=== PATIENT | male | born 1960 | race Caucasian/White ===

== ENCOUNTER 2016-06-26 14:58 | Observation (INO) | payer BC, MEDICAID ==
[~2016-06-26] VITALS: Ht 172.7 cm; Wt 70.0 kg
[2016-06-26 15:57] VITALS: BP 192/101; PULSE 102; RESP 20; TEMP 98.9; O2SAT 97
[2016-06-26 16:21] LABS: AUTOMATED NEUTROPHIL # 21.5 TH/MM3 (1.8-7.7); BASOPHIL # 0.1 TH/MM3 (0-0.2); BASOPHIL % 0.3 % (0.0-2.0); EOSINOPHIL % 0.1 % (0.0-4.0); LYMPHOCYTE # 1.2 TH/MM3 (1.0-4.8); MEAN CELL VOLUME 88.3 FL (80.0-100.0); MEAN CORPUSCULAR HEMOGLOBIN 30.2 PG (27.0-34.0); MEAN CORPUSCULAR HGB CONC 34.2 % (32.0-36.0); MONO % 6.5 % (0.0-8.0); NEUT % 88.1 % (16.0-70.0); PLATELET COUNT 300 TH/MM3 (150-450); RED BLOOD COUNT 4.99 MIL/MM3 (4.50-5.90); RED CELL DISTRIBUTION WIDTH 12.6 % (11.6-17.2); WHITE BLOOD COUNT 24.4 TH/MM3 (4.0-11.0)
[2016-06-26 16:31] LABS: AMPHETAMINE, URINE NEG (NEG); BARBITURATES, URINE NEG (NEG); COCAINE, URINE NEG (NEG)
[2016-06-26 16:34] LABS: HEMO FLAGS AUTO DIFF
[2016-06-26] MEDS ORDERED: SODIUM CHLOR 0.9% 1000 ML INJ 1,000 ML IV ONE ×2 (16:49)
[2016-06-26 16:54] LABS: ANION GAP 9 MEQ/L (5-15); AST (GOT) 15 U/L (15-37); BICARBONATE 26.1 MEQ/L (21.0-32.0); BLOOD UREA NITROGEN 19 MG/DL (7-18); CHLORIDE 95 MEQ/L (98-107); SODIUM (NA) 130 MEQ/L (136-145)
[2016-06-26 16:59] LABS: ALKALINE PHOSPHATASE 174 U/L (45-117); ALT (GPT) 44 U/L (12-78); GLOMERULAR FILTRATION RATE 104 ML/MIN (>89); TOTAL BILIRUBIN ADULT 0.5 MG/DL (0.2-1.0)
--- NOTE | 2016-06-26 17:01 | PD ---
HPI Chief Complaint: Psychiatric Symptoms Time Seen by Provider: 16:57 Travel History International Travel<30 days: No Contact w/Intl Traveler<30days: No Traveled to known affect area: No History of Present Illness HPI 56-year-old male that presents to the ED for evaluation of psychiatric illness. Patient was Michel acted by police after he was found making nonsensical statements. When I asked the patient about if he has any medical problems he states that is because "the black people". Patient also tells me that "[place] Ricans are all fight". Patient denies any medical problems. Per patient his only medical problem is " black people". He has never been here before. Patient makes nonsensical statements and I cannot really get any history from him. He denies any pain of any kind. No psychiatric illness. No signs of trauma or injury. Patient again is not a good historian and does appear to be somewhat psychotic at this time. Further history cannot be obtained. [facility] Past Medical History Medical History: Unable to Obtain Past Surgical History Surgical History: Unable to Obtain Social History Narrative Social History cannot obtain info Alcohol Use: No Tobacco Use: No Substance Use: No Allergies-Medications (Allergen,Severity, Reaction): Coded Allergies: UNOBTAINABLE (Unverified , 06/26/16) Reported Meds & Prescriptions Reported Meds & Active Scripts Active No Active Prescriptions or Reported Medications Review of Systems ROS Limitations: Altered Mental Status, Psychotic Except as stated in HPI: all other systems reviewed are Neg Physical Exam Exam Limitations: Altered Mental Status, Psychotic Narrative GENERAL: SKIN: Warm and dry. HEAD: Atraumatic. Normocephalic. EYES: Pupils equal and round. No scleral icterus. No injection or drainage. ENT: No nasal bleeding or discharge. Mucous membranes pink and moist. Tongue is midline. No uvula deviation. NECK: Trachea midline. No JVD. no meningia signs noted CARDIOVASCULAR: Regular rate and rhythm. No murmurs, S3, S4. RESPIRATORY: No accessory muscle use. Clear to auscultation. Breath sounds equal bilaterally. GASTROINTESTINAL: Abdomen soft, non-tender, nondistended. Hepatic and splenic margins not palpable. MUSCULOSKELETAL: Extremities without clubbing, cyanosis, or edema. No obvious deformities. Full range of motion of the upper and lower extremities bilaterally. 2+ pulses bilaterally. NEUROLOGICAL: Awake and alert. No obvious cranial nerve deficits. Motor grossly within normal limits. Five out of 5 muscle strength in the arms and legs. Normal speech. PSYCHIATRIC: psychotic mood and affect; insight and judgment questionable. Data Data Last Documented VS Vital Signs Date Time Temp Pulse Resp B/P Pulse Ox O2 Delivery O2 Flow Rate FiO2 06/26/16 20:21 88 20 167/87 98 Room Air 06/26/16 15:57 98.9 Orders Complete Blood Count With Diff (06/26/16 16:01) Comprehensive Metabolic Panel (06/26/16 16:01) Drug Screen, Random Urine (06/26/16 16:01) Alcohol (Ethanol) (06/26/16 16:01) Psych Screen (06/26/16 16:01) Ct Brain W/O Iv Contrast(Rout) (06/26/16 ) Lactic Acid Sepsis Protocol (06/26/16 16:49) Urinalysis - C+S If Indicated (06/26/16 16:49) Blood Culture (06/26/16 16:49) Chest, Single Ap (06/26/16 16:49) Ecg Monitoring (06/26/16 16:49) Iv Access Insert/Monitor (06/26/16 16:49) Oximetry (06/26/16 16:49) Sodium Chlor 0.9% 1000 Ml Inj (Ns 1000 M (06/26/16 16:49) Sodium Chlor 0.9% 1000 Ml Inj (Ns 1000 M (06/26/16 16:49) ^ Sitter (06/26/16 16:57) Cath For Specimen (06/26/16 18:00) Ceftriaxone Inj (Rocephin Inj) (06/26/16 20:30) Admit Order (Ed Use Only) (06/26/16 20:18) Labs Laboratory Tests Test 06/26/16 06/26/16 15:52 17:30 White Blood Count 24.4 TH/MM3 Red Blood Count 4.99 MIL/MM3 Hemoglobin 15.1 GM/DL Hematocrit 44.0 % Mean Corpuscular Volume 88.3 FL Mean Corpuscular Hemoglobin 30.2 PG Mean Corpuscular Hemoglobin 34.2 % Concent Red Cell Distribution Width 12.6 % Platelet Count 300 TH/MM3 Mean Platelet Volume 6.5 FL Neutrophils (%) (Auto) 88.1 % Lymphocytes (%) (Auto) 5.0 % Monocytes (%) (Auto) 6.5 % Eosinophils (%) (Auto) 0.1 % Basophils (%) (Auto) 0.3 % Neutrophils # (Auto) 21.5 TH/MM3 Lymphocytes # (Auto) 1.2 TH/MM3 Monocytes # (Auto) 1.6 TH/MM3 Eosinophils # (Auto) 0.0 TH/MM3 Basophils # (Auto) 0.1 TH/MM3 CBC Comment AUTO DIFF Differential Comment AUTO DIFF CONFIRMED Platelet Estimate NORMAL Platelet Morphology Comment NORMAL Sodium Level 130 MEQ/L Potassium Level 4.0 MEQ/L Chloride Level 95 MEQ/L Carbon Dioxide Level 26.1 MEQ/L Anion Gap 9 MEQ/L Blood Urea Nitrogen 19 MG/DL Creatinine 0.77 MG/DL Estimat Glomerular Filtration 104 ML/MIN Rate Random Glucose 136 MG/DL Calcium Level 9.3 MG/DL Total Bilirubin 0.5 MG/DL Aspartate Amino Transf 15 U/L (AST/SGOT) Alanine Aminotransferase 44 U/L (ALT/SGPT) Alkaline Phosphatase 174 U/L Total Protein 6.9 GM/DL Albumin 3.8 GM/DL Urine Opiates Screen NEG Urine Barbiturates Screen NEG Urine Amphetamines Screen NEG Urine Benzodiazepines Screen NEG Urine Cocaine Screen NEG Urine Cannabinoids Screen POS Ethyl Alcohol Level LESS THAN 3 MG/DL Lactic Acid Level 0.8 mmol/L MDM Medical Decision Making Medical Screen Exam Complete: Yes Emergency Medical Condition: Yes Medical Record Reviewed: Yes Interpretation(s) CBC & BMP Diagram 06/26/16 15:52 BMP Diagram 06/26/16 15:52 tox negative LFTS WNL Last Impressions Chest X-Ray 06/26/16 1649 Signed Impressions: Service Date/Time: Sunday, June 26, 2016 17:12 - CONCLUSION: No acute disease. Saul Najera MD Head CT 06/26/16 0000 Signed Impressions: Service Date/Time: Sunday, June 26, 2016 17:18 - CONCLUSION: 1. 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 2. No acute infarct, acute hemorrhage, mass effect or extra-axial fluid collections. Saul Najera MD Differential Diagnosis Depression versus suicidal ideation versus anxiety versus adjustment disorder versus mood disorder versus bipolar disorder versus schizophrenia versus paranoid disorder versus psychosis versus substance abuse versus alcohol abuse versus alcohol induced psychosis versus homicidality addition versus cutting versus personality disorder versus sepsis versus infectious versus CVA Narrative Course 56-year-old male that presents to the ED for evaluation of psych. Patient was properly examined and was found to have signs and symptoms consistent with appears to be at this time psychosis. She has never been here before. He doesn 't appear to have any signs of trauma. I recommend patient this time is labs and imaging to rule out CVA. Labs came back with an elevated level second of for known etiology. Case was discussed in my attending recommends sepsis workup. Patient was put on an IV and new labs and imaging ordered. Labs and imaging were essentially unremarkable except for slightly elevated white blood cell count at 24,000. Case discussed with my attending who recommends admission and psych evaluation. Patient was started on Rocephin to rule out any sign of UTI as urine still pending. Patient was admitted to Dr. St after my attending spoke with her. Diagnosis Primary Impression: Altered mental status Qualified Code: R41.0 - Delirium Additional Impression: Leukocytosis Qualified Code: D72.829 - Leukocytosis, unspecified type Admitting Information Admitting Physician Requests: Observation Scripts No Active Prescriptions or Reported Meds Brendan Wick Jun 26, 2016 17:01
[2016-06-26 17:03] LABS: PLATELET ESTIMATE SMEAR NORMAL (NORMAL); PLATELET MORPHOLOGY NORMAL (NORMAL); SCAN/DIFF AUTO DIFF CONFIRMED
--- NOTE | 2016-06-26 17:21 | RADRPT ---
EXAM DATE/TIME: 06/26/2016 17:12 [facility] COMPARISON: No previous studies available for comparison. INDICATIONS : Cough for several days. MEDICAL HISTORY : Unobtainable. SURGICAL HISTORY : Unobtainable. ENCOUNTER: Initial ACUITY: 2 days PAIN SCORE: 0/10 LOCATION: Bilateral chest FINDINGS: A single view of the chest demonstrates the lungs to be symmetrically aerated without evidence of mas s, infiltrate or effusion. The cardiomediastinal contours are unremarkable. Osseous structures are intact. CONCLUSION: No acute disease. Saul Najera MD on June 26, 2016 at 17:20 Board Certified Radiologist. This report was verified electronically.
--- NOTE | 2016-06-26 17:27 | RADRPT ---
EXAM DATE/TIME: 06/26/2016 17:18 [facility] COMPARISON: No previous studies available for comparison. INDICATIONS : Altered mental status. RADIATION DOSE: 50.23 CTDIvol (mGy) MEDICAL HISTORY : None SURGICAL HISTORY : None. ENCOUNTER: Initial ACUITY: 1 day PAIN SCALE: 0/10 LOCATION: cranial TECHNIQUE: Multiple contiguous axial images were obtained of the head. Using automated exposure control and adj ustment of the mA and/or kV according to patient size, radiation dose was kept as low as reasonably a chievable to obtain optimal diagnostic quality images. FINDINGS: CEREBRUM: The ventricles are normal for age. No evidence of midline shift, mass lesion, hemorrhage or acute in farction. There is an old lacunar infarct within the right putamen. No extra-axial fluid collections are seen. POSTERIOR FOSSA: The cerebellum and brainstem are intact. The 4th ventricle is midline. The cerebellopontine angle i s unremarkable. EXTRACRANIAL: The visualized portion of the orbits is intact. SKULL: The calvaria is intact. No evidence of skull fracture. CONCLUSION: 1. 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 2. No acute infarct, acute hemorrhage, mass effect or extra-axial fluid collections. Saul Najera MD on June 26, 2016 at 17:24 Board Certified Radiologist. This report was verified electronically.
[2016-06-26 19:08] VITALS: BP 174/84; PULSE 75; RESP 18; O2SAT 98
[2016-06-26 20:21] VITALS: BP 167/87; PULSE 88; RESP 20; O2SAT 98
--- NOTE | 2016-06-26 20:24 | PD ---
Physical Exam Narrative GENERAL: Well-nourished, well-developed patient. SKIN: Warm and dry. HEAD: Normocephalic EYES: No injection or drainage. ENT: No nasal drainage noted. NECK: Supple, trachea midline. CARDIOVASCULAR: Regular rate and rhythm RESPIRATORY: no increased effort. No accessory muscle use. NEUROLOGICAL: Awake. Moves all extremities. Normal speech. Data Data Last Documented VS Vital Signs Date Time Temp Pulse Resp B/P Pulse Ox O2 Delivery O2 Flow Rate FiO2 06/26/16 20:21 88 20 167/87 98 Room Air 06/26/16 15:57 98.9 Orders Complete Blood Count With Diff (06/26/16 16:01) Comprehensive Metabolic Panel (06/26/16 16:01) Drug Screen, Random Urine (06/26/16 16:01) Alcohol (Ethanol) (06/26/16 16:01) Psych Screen (06/26/16 16:01) Ct Brain W/O Iv Contrast(Rout) (06/26/16 ) Lactic Acid Sepsis Protocol (06/26/16 16:49) Urinalysis - C+S If Indicated (06/26/16 16:49) Blood Culture (06/26/16 16:49) Chest, Single Ap (06/26/16 16:49) Ecg Monitoring (06/26/16 16:49) Iv Access Insert/Monitor (06/26/16 16:49) Oximetry (06/26/16 16:49) Sodium Chlor 0.9% 1000 Ml Inj (Ns 1000 M (06/26/16 16:49) Sodium Chlor 0.9% 1000 Ml Inj (Ns 1000 M (06/26/16 16:49) ^ Sitter (06/26/16 16:57) Cath For Specimen (06/26/16 18:00) Ceftriaxone Inj (Rocephin Inj) (06/26/16 20:30) Admit Order (Ed Use Only) (06/26/16 20:18) Place In Observation (06/26/16 ) Vital Signs (Adult) Q4H (06/26/16 20:22) Activity Oob With Assistance (06/26/16 20:22) ^ Fork Repairer / Telemetry .CONTINUOUS (06/26/16 20:22) Diet Heart Healthy (06/27/16 Breakfast) Sodium Chloride 0.9% Flush (Ns Flush) (06/26/16 20:30) Sodium Chloride 0.9% Flush (Ns Flush) (06/26/16 21:00) Basic Metabolic Panel (Bmp) (06/27/16 06:00) Complete Blood Count With Diff (06/27/16 06:00) Case Management Consult (06/26/16 20:22) Naloxone Inj (Narcan Inj) (06/26/16 20:30) ^ Sitter (06/26/16 20:22) Consult Psychiatry (06/26/16 ) Labs Laboratory Tests Test 06/26/16 06/26/16 15:52 17:30 White Blood Count 24.4 TH/MM3 Red Blood Count 4.99 MIL/MM3 Hemoglobin 15.1 GM/DL Hematocrit 44.0 % Mean Corpuscular Volume 88.3 FL Mean Corpuscular Hemoglobin 30.2 PG Mean Corpuscular Hemoglobin 34.2 % Concent Red Cell Distribution Width 12.6 % Platelet Count 300 TH/MM3 Mean Platelet Volume 6.5 FL Neutrophils (%) (Auto) 88.1 % Lymphocytes (%) (Auto) 5.0 % Monocytes (%) (Auto) 6.5 % Eosinophils (%) (Auto) 0.1 % Basophils (%) (Auto) 0.3 % Neutrophils # (Auto) 21.5 TH/MM3 Lymphocytes # (Auto) 1.2 TH/MM3 Monocytes # (Auto) 1.6 TH/MM3 Eosinophils # (Auto) 0.0 TH/MM3 Basophils # (Auto) 0.1 TH/MM3 CBC Comment AUTO DIFF Differential Comment AUTO DIFF CONFIRMED Platelet Estimate NORMAL Platelet Morphology Comment NORMAL Sodium Level 130 MEQ/L Potassium Level 4.0 MEQ/L Chloride Level 95 MEQ/L Carbon Dioxide Level 26.1 MEQ/L Anion Gap 9 MEQ/L Blood Urea Nitrogen 19 MG/DL Creatinine 0.77 MG/DL Estimat Glomerular Filtration 104 ML/MIN Rate Random Glucose 136 MG/DL Calcium Level 9.3 MG/DL Total Bilirubin 0.5 MG/DL Aspartate Amino Transf 15 U/L (AST/SGOT) Alanine Aminotransferase 44 U/L (ALT/SGPT) Alkaline Phosphatase 174 U/L Total Protein 6.9 GM/DL Albumin 3.8 GM/DL Urine Opiates Screen NEG Urine Barbiturates Screen NEG Urine Amphetamines Screen NEG Urine Benzodiazepines Screen NEG Urine Cocaine Screen NEG Urine Cannabinoids Screen POS Ethyl Alcohol Level LESS THAN 3 MG/DL Lactic Acid Level 0.8 mmol/L MDM Supervised Visit with SANTOS: Yes Interpretation(s) CBC & BMP Diagram 06/26/16 15:52 Last 24 hours Impressions Chest X-Ray 06/26/16 1649 Signed Impressions: Service Date/Time: Sunday, June 26, 2016 17:12 - CONCLUSION: No acute disease. Saul Najera MD Head CT 06/26/16 0000 Signed Impressions: Service Date/Time: Sunday, June 26, 2016 17:18 - CONCLUSION: 1. 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 2. No acute infarct, acute hemorrhage, mass effect or extra-axial fluid collections. Saul Najera MD Narrative Course I, Dr. delacruz, have reviewed the advance practice practitioner's documentation and am in agreement, met with the patient face to face, made the diagnosis, and the medical decision making was done by me. *My assessment and Findings: A 56-year-old male presents under Michel act for altered mental status. He cannot provide significant history. Workup reveals elevated white count. He'll be admitted for further care and Rocephin was given empirically after discussion with the admission physician Physician Communication Physician Communication dr pisano agrees to admit, requests rocephin Diagnosis Primary Impression: Altered mental status Qualified Code: R41.82 - Altered mental status, unspecified altered mental status type Additional Impression: Leukocytosis Qualified Code: D72.829 - Leukocytosis, unspecified type Admitting Information Admitting Physician Requests: Observation Scripts No Active Prescriptions or Reported Meds Rola Delacruz MD Jun 26, 2016 20:24
[2016-06-26 20:25] LABS: BLOOD, URINE NEG (NEG); COMMENT (UR) CULT NOT INDICATED; CULTURE IF INDICATED CULT NOT INDICATED; GLUCOSE,URINE NEG (NEG); KETONE, URINE NEG (NEG); MUCUS URINE FEW /lpf (OCC); NITRITE,URINE NEG (NEG); PH, URINE 5.5 (5.0-8.5); URINE COLOR YELLOW (YELLW/STRAW)
[2016-06-26] MEDS ORDERED: SODIUM CHLORIDE 0.9% FLUSH 5 ML FLUSH FLUSH PRN (20:30)
[2016-06-26] MEDS ORDERED: NALOXONE HCL 0.4 MG/ML AMP IV PRN (20:30)
[2016-06-26] MEDS ORDERED: cefTRIAXone INJ 1,000 MG in SODIUM CHLORIDE 0.9% INJ 100 ML IV ONE (20:30)
[2016-06-26] MEDS: SODIUM CHLORIDE 0.9% FLUSH 5 ML FLUSH FLUSH SCH (21:08)
[2016-06-26 23:24] VITALS: BP 170/82; PULSE 84; RESP 20; O2SAT 98
--- NOTE | 2016-06-27 01:48 | HHI.HP ---
HPI Service [facility] Primary Care Physician No Primary Care Physician Admission Diagnosis altered mental status, elevated wbc Diagnoses: (1) Altered mental status (2) Leukocytosis Chief Complaint: Delirium Travel History International Travel<30 Days: No Contact w/Intl Traveler <30 Da: No Traveled to Known Affected Are: No History of Present Illness Mr. Arredondo is a 56 year-old male who presented to the ER under [employer] Act by Dr. Murrell after he was making nonsensical statements during an office visit ( initially reported as being Michel Acted by police). WBC was found to be elevated at 24,000. UA unremarkable. Hyponatremia noted with sodium level 130. Likely mild dehydration with BUN slightly elevated at 19. CXR and Head CT negative for acute process. The patient appears quite cachectic and frail. He is severely confused and answers almost all questions "no". He initially indicates that he is here "because of the black people". Upon reviewing the patient's [employer] paperwork , Oncologist Dr. Murrell listed his name and number and signed the [employer] paperwork. His number is [phone]. We will need to speak with Dr. Murrell during office hours today to get further information. Review of Systems ROS Limitations: Altered Mental Status (unable to obtain reliable review of systems due to patient confusion), Poor Historian Past Family Social History Past Medical History Unable to obtain reliable medical history and this is the patient's first visit to this hospital Past Surgical History Unable to obtain reliable surgical history and this is the patient's first visit to this hospital Reported Medications Unknown Allergies: Coded Allergies: UNOBTAINABLE (Unverified , 06/26/16) Active Ordered Medications Current Medications Sodium Chloride 1,000 ml @ 1,000 mls/hr Q1H ONCE IV Last administered on 19:07; Start 06/26/16 at 16:49; Stop 06/26/16 at 17:48; Status DC Sodium Chloride 1,000 ml @ 1,000 mls/hr Q1H ONCE IV Last administered on 19:07; Start 06/26/16 at 16:49; Stop 06/26/16 at 17:48; Status DC Ceftriaxone Sodium/Sodium Chloride (Rocephin Inj/NS Inj) 100 ml @ 200 mls/hr ONCE ONCE IV Last administered on 06/26/16 20:24; Start 06/26/16 at 20:30; Stop 06/26/16 at 20:59; Status DC IV Flush (NS Flush) 2 ml UNSCH PRN FLUSH FLUSH AFTER USING IV ACCESS; Start 05/02 at 20:30 IV Flush (NS Flush) 2 ml BID FLUSH Last administered on 06/26/16 21:08; Start 06/26/16 at 21:00 Naloxone HCl 0.4 mg 0.4 mg UNSCH PRN IV SEE LABEL COMMENTS; Start 06/26/16 at 20:30 Ceftriaxone Sodium/Sodium Chloride (Rocephin Inj/NS Inj) 100 ml @ 200 mls/hr Q24H IV ; Start 06/27/16 at 20:00 Family History reliable history could not be obtained as patient is very confused Social History Unable to obtain reliable social history due to patient's confusion . Physical Exam Vital Signs Vital Signs Date Time Temp Pulse Resp B/P Pulse Ox O2 Delivery O2 Flow Rate FiO2 06/26/16 23:24 84 20 170/82 98 Room Air 06/26/16 20:21 88 20 167/87 98 Room Air 06/26/16 19:08 75 18 174/84 98 Room Air 06/26/16 15:57 98.9 102 20 192/101 97 Physical Exam GENERAL: This is a severely cachectic male patient with temporal wasting and what appears to be a wedding ring on his pinky finger. He is very confused, in no apparent distress. SKIN: No rashes, ecchymoses or lesions. Cool and dry. HEAD: Atraumatic. Normocephalic. EYES: No scleral icterus. No injection or drainage. ENT: Nose without bleeding, purulent drainage. NECK: Trachea midline. No JVD or lymphadenopathy. CARDIOVASCULAR: Regular rate and rhythm without murmurs, gallops, or rubs. RESPIRATORY: Clear to auscultation. Breath sounds equal bilaterally. No wheezes , rales, or rhonchi. GASTROINTESTINAL: Abdomen soft, non-tender, nondistended. No guarding. MUSCULOSKELETAL: Extremities without clubbing, cyanosis, or edema. No calf tenderness. NEUROLOGICAL: Very confused but not combative. Motor and sensory grossly within normal limits. Normal speech. . Laboratory Laboratory Tests Test 06/26/16 06/26/16 06/26/16 15:52 17:30 19:20 White Blood Count 24.4 Red Blood Count 4.99 Hemoglobin 15.1 Hematocrit 44.0 Mean Corpuscular Volume 88.3 Mean Corpuscular Hemoglobin 30.2 Mean Corpuscular Hemoglobin 34.2 Concent Red Cell Distribution Width 12.6 Platelet Count 300 Mean Platelet Volume 6.5 Neutrophils (%) (Auto) 88.1 Lymphocytes (%) (Auto) 5.0 Monocytes (%) (Auto) 6.5 Eosinophils (%) (Auto) 0.1 Basophils (%) (Auto) 0.3 Neutrophils # (Auto) 21.5 Lymphocytes # (Auto) 1.2 Monocytes # (Auto) 1.6 Eosinophils # (Auto) 0.0 Basophils # (Auto) 0.1 CBC Comment AUTO DIFF Differential Comment AUTO DIFF CONFIRMED Platelet Estimate NORMAL Platelet Morphology Comment NORMAL Sodium Level 130 Potassium Level 4.0 Chloride Level 95 Carbon Dioxide Level 26.1 Anion Gap 9 Blood Urea Nitrogen 19 Creatinine 0.77 Estimat Glomerular Filtration 104 Rate Random Glucose 136 Calcium Level 9.3 Total Bilirubin 0.5 Aspartate Amino Transf 15 (AST/SGOT) Alanine Aminotransferase 44 (ALT/SGPT) Alkaline Phosphatase 174 Total Protein 6.9 Albumin 3.8 Urine Opiates Screen NEG Urine Barbiturates Screen NEG Urine Amphetamines Screen NEG Urine Benzodiazepines Screen NEG Urine Cocaine Screen NEG Urine Cannabinoids Screen POS Ethyl Alcohol Level LESS THAN 3 Lactic Acid Level 0.8 Urine Color YELLOW Urine Turbidity CLEAR Urine pH 5.5 Urine Specific [place] 1.024 Urine Protein NEG Urine Glucose (UA) NEG Urine Ketones NEG Urine Occult Blood NEG Urine Nitrite NEG Urine Bilirubin NEG Urine Urobilinogen LESS THAN 2.0 Urine Leukocyte Esterase NEG Urine RBC LESS THAN 1 Urine WBC 1 Urine Mucus FEW Microscopic Urinalysis Comment CULT NOT INDICATED Date/Time Procedure Status Source Growth 06/26/16 17:45 Aerobic Blood Culture Received Blood Peripheral Pending 06/26/16 17:45 Anaerobic Blood Culture Received Blood Peripheral Pending Result Diagram: 06/26/16 1552 06/26/16 1552 Imaging Last Impressions Chest X-Ray 06/26/16 1649 Signed Impressions: Service Date/Time: Sunday, June 26, 2016 17:12 - CONCLUSION: No acute disease. Saul Najera MD Head CT 06/26/16 0000 Signed Impressions: Service Date/Time: Sunday, June 26, 2016 17:18 - CONCLUSION: 1. 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 2. No acute infarct, acute hemorrhage, mass effect or extra-axial fluid collections. Saul Najera MD Assessment and Plan Problem List: (1) Altered mental status ICD Code: R41.82 Status: Acute (2) Leukocytosis ICD Code: D72.829 Status: Acute (3) Hyponatremia ICD Code: E87.1 Status: Acute Assessment and Plan Mr. Arredondo is a 56 year-old male who presented to the ER under [employer] Act by Dr. Murrell after he was making nonsensical statements during an office visit ( initially reported as being Michel Acted by police). WBC was found to be elevated at 24,000. UA unremarkable. Hyponatremia noted with sodium level 130. Likely mild dehydration with BUN slightly elevated at 19. CXR and Head CT negative for acute process. Altered Mental Status - infectious process vs toxic - Toxicology is positive for cannabinoids only - Urinalysis negative except for few mucus; culture not indicated - Head CT with old lacunar infarct within the right putamen. No acute infarct, hemorrhage or extra-axial fluid collections - Consult psychiatry - Sitter at bedside - Neuro checks q4h Leukocytosis with neutrophilia - Lactic Acid 0.8 - Blood cultures x 2; pending will follow results - Empiric antibiotics: Ceftriaxone 1 gram IV q24h - UA unremarkable and CXR negative for acute process - Recheck CBC in a.m. and follow trends - VS q4h Hyponatremia, mild - Sodium level 130 on admission - Given two liter boluses of NS in ER - Recheck BMP in a.m. and follow trends Dr. Murrell listed his name and number and signed the [employer] paperwork. His number is [phone]. We will need to speak with Dr. Murrell during office hours today to get further information. DVT prophylaxis - SCDs Oncologist Dr. Murrell listed his name and number and signed the [employer] paperwork. His number is [phone]. We will need to speak with Dr. Murrell during office hours today to get further information Written by Kathryn Wells, acting as scribe for Dr. St on 06/27/16 at 01:45. The documentation accurately reflects the work performed [id number] by me on at 0145 . Discussed Condition With ER PA and RN Problem Qualifiers (1) Altered mental status: Qualified Code: R41.0 - Delirium (2) Leukocytosis: Qualified Code: D72.829 - Leukocytosis, unspecified type Kathryn Poole Jun 27, 2016 01:[address] MD Jun 27, 2016 08:41
[2016-06-27 02:13] VITALS: BP 160/76; PULSE 87; RESP 18; TEMP 98.8; O2SAT 98
[2016-06-27 05:45] VITALS: BP 138/86; PULSE 88; RESP 18; TEMP 97.9; O2SAT 98
[2016-06-27 08:10] VITALS: BP 126/70; PULSE 76; RESP 18; TEMP 98.6; O2SAT 97
[2016-06-27] MEDS: SODIUM CHLORIDE 0.9% FLUSH 5 ML FLUSH FLUSH SCH (09:00)
--- NOTE | 2016-06-27 10:41 | HHI.PR ---
Subjective Remarks Follow-up for altered mental status. The patient is awake and alert, but is an extremely poor historian. When asked how he was doing he replies "all right". When asked if he knows where his is, he replies "here". He does not answer when he is asked about the date, regarding any substance use, or if he has any other complaints. He does reply no when asked if he has any nausea, vomiting, or pain. Objective Vitals Vital Signs Date Time Temp Pulse Resp B/P Pulse Ox O2 Delivery O2 Flow Rate FiO2 06/27/16 08:10 98.6 76 18 126/70 97 06/27/16 05:45 97.9 88 18 138/86 98 06/27/16 02:13 98.8 87 18 160/76 98 06/26/16 23:24 84 20 170/82 98 Room Air 06/26/16 20:21 88 20 167/87 98 Room Air 06/26/16 19:08 75 18 174/84 98 Room Air 06/26/16 15:57 98.9 102 20 192/101 97 I/O 06/26/16 06/26/16 06/26/16 06/27/16 06/27/16 06/27/16 07:00 15:00 23:00 07:00 15:00 23:00 Intake Total 2000 ml Balance 2000 ml Intake IV Total 2000 ml # Voids 1 # Bowel Movements 1 Result Diagram: 06/26/16 1552 06/26/16 1552 Imaging Last Impressions Chest X-Ray 06/26/16 1649 Signed Impressions: Service Date/Time: Sunday, June 26, 2016 17:12 - CONCLUSION: No acute disease. Saul Najera MD Head CT 06/26/16 0000 Signed Impressions: Service Date/Time: Sunday, June 26, 2016 17:18 - CONCLUSION: 1. 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 2. No acute infarct, acute hemorrhage, mass effect or extra-axial fluid collections. Saul Najera MD Objective Remarks GENERAL: Well-developed well-nourished. In no acute distress. SKIN: Warm and dry. No lesions noted. HEENT: Normocephalic. Pupils equal and round. Mucous membranes pink and moist. CARDIOVASCULAR: Regular rate and rhythm. No murmur appreciated. RESPIRATORY: No accessory muscle use. Clear to auscultation. Breath sounds equal bilaterally. GASTROINTESTINAL: Abdomen soft, non-tender, nondistended. Bowel sounds x4. MUSCULOSKELETAL: No obvious deformities. No clubbing or cyanosis. No edema. NEUROLOGICAL: Awake and alert. No focal neurological deficits. Moves upper and lower extremities spontaneously. Normal speech. PSYCHIATRIC: Confusing guarding, but calm mood and affect; insight and judgment impaired. A/P Problem List: (1) Altered mental status ICD Code: R41.82 Status: Acute (2) Leukocytosis ICD Code: D72.829 Status: Acute (3) Hyponatremia ICD Code: E87.1 Status: Acute Assessment and Plan Mr. Arredondo is a 56 year-old male who presented to the ER under Michel Act by Dr. Murrell after he was making nonsensical statements during an office visit ( initially reported as being Michel Acted by police). WBC was found to be elevated at 24,000. UA unremarkable. Hyponatremia noted with sodium level 130. Likely mild dehydration with BUN slightly elevated at 19. CXR and Head CT negative for acute process. Acute encephalopathy: Toxic versus metabolic Toxicology is positive for cannabinoids No signs of acute infection, see leukocytosis as below Head CT with old lacunar infarct within the right putamen. No acute infarct, hemorrhage or extra-axial fluid collections - Consulted psychiatry - Sitter at bedside - Neuro checks q4h Leukocytosis with neutrophilia Lactic Acid 0.8. Afebrile. Unknown baseline. UA unremarkable and CXR negative for acute process - Blood cultures x 2; pending will follow results - Hold off on further antibiotics at this time unless patient develops a fever or additional signs of infection - Recheck CBC pending - VS q4h Hyponatremia, mild Sodium level 130 on admission Given two liter boluses of NS in ER - Recheck BMP pending Dr. Murrell listed his name and number and signed the Michel Act paperwork. His number is [phone]. We will attempt to contact Dr. Murrell today. DVT prophylaxis - SCDs Written by Ricardo Page, acting as scribe for Dr. Rosario on 06/27/16 at 10:38. Discharge Planning Dr. Rosario spoke with patient's family and patient's oncologist. Family requested hospice, consulted. Michel act lifted by psychiatry. Discussed with hospice, patient accepted and family wants to take the patient home. Discussed with Dr. Rosario. Discharge patient to home with hospice Condition on discharge: Improved Regular Diet as tolerated Regular activity Rx written: Per hospice M.D. Follow-up with hospice, PCP Attending Statement The documentation accurately reflects the work performed [id number] by me, Dr. Rosario on 06/27/16 at 10:38. Problem Qualifiers (1) Altered mental status: Qualified Code: R41.0 - Delirium (2) Leukocytosis: Qualified Code: D72.829 - Leukocytosis, unspecified type Ricardo Page Jun 27, 2016 10:41 Duane Rosario MD Jul 22, 2016 02:08
[2016-06-27] MEDS ORDERED: DEXA0.5T PO (11:36)
[2016-06-27] MEDS ORDERED: FENO145T2 PO (11:36)
[2016-06-27] MEDS ORDERED: ASCO10003 PO (11:36)
[2016-06-27] MEDS ORDERED: OMEP40CA2 PO (11:36)
[2016-06-27] MEDS ORDERED: ATOR20TA15 PO (11:36)
[2016-06-27] MEDS ORDERED: LEVE500T8 PO (11:36)
[2016-06-27] MEDS ORDERED: FLUC100T2 PO (11:36)
[2016-06-27 13:12] LABS: AUTOMATED NEUTROPHIL # 15.1 TH/MM3 (1.8-7.7); BASOPHIL % 0.2 % (0.0-2.0); EOSINOPHIL % 0.2 % (0.0-4.0); LYMPHOCYTE # 1.5 TH/MM3 (1.0-4.8); MEAN CORPUSCULAR HEMOGLOBIN 31.2 PG (27.0-34.0); MEAN CORPUSCULAR HGB CONC 35.5 % (32.0-36.0); MONO % 9.1 % (0.0-8.0); NEUT % 82.5 % (16.0-70.0); PLATELET COUNT 304 TH/MM3 (150-450); RED BLOOD COUNT 4.77 MIL/MM3 (4.50-5.90); RED CELL DISTRIBUTION WIDTH 12.6 % (11.6-17.2); WHITE BLOOD COUNT 18.4 TH/MM3 (4.0-11.0)
[2016-06-27 13:16] LABS: HEMO FLAGS AUTO DIFF
[2016-06-27 13:17] LABS: PROTHROMBIN TIME - PATIENT 11.4 SEC (9.8-11.6)
[2016-06-27 13:23] LABS: BICARBONATE 26.3 MEQ/L (21.0-32.0)
[2016-06-27 13:42] LABS: BANDS 8 % (0-6); BASOPHILS 2 % (0-2); METAMYELOCYTES 1 % (0-1); MYELOCYTES 1 % (0-0); POLYS (SEG NEUTROPHILS) 77 % (16-70); WBC DIFF SAMPLE 100
[2016-06-27 13:43] LABS: PLATELET ESTIMATE SMEAR NORMAL (NORMAL); PLATELET MORPHOLOGY NORMAL (NORMAL); SCAN/DIFF FINAL DIFF MANUAL; TOXIC GRANULATION 1+ (NORMAL)
[2016-06-27] MEDS ORDERED: LACTULOSE SYRUP 20 GM/30 ML CUP PO ONE (13:45)
--- NOTE | 2016-06-27 15:57 | PD.CONS ---
Provisional Diagnosis Admission Date Jun 26, 2016 at 20:20 [place]. Delirium due to underlying medical condition History of Present Illness Service Psychiatry Consult Requested By Primary Care Physician No Primary Care Physician HPI The patient is a 56 year-old man, no previous psychiatric history, brain cancer, who presented to the ER under Michel Act by Dr. Murrell after he was making nonsensical statements during an office visit (initially reported as being Michel Acted by police). WBC was found to be elevated at 24,000. UA unremarkable. Hyponatremia noted with sodium level 130. Likely mild dehydration with BUN slightly elevated at 19. CXR and Head CT negative for acute process.The patient appears quite cachectic and frail. He is severely confused and answers almost all questions "no". He initially indicates that he is here "because of the black people". Upon reviewing the patient's [facility] paperwork , Oncologist Dr. Murrell listed his name and number and signed the [employer] paperwork. His number is [phone]. We will need to speak with Dr. Murrell during office hours today to get further information. [employer] says that the patient was just Michel acted due to delirium. On psychiatric evaluation patient is unresponsive, non-cooperative, he seems to be very distant, staring to the floor, no answering any question. Review of Systems ROS Limitations: Uncooperative Past Family Social History Coded Allergies: UNOBTAINABLE (Unverified , 06/26/16) Reported Medications Omeprazole 40 Mg Cap40 Mg PO DAILY #30 CAP Ref 0 06/27/16 Levetiracetam 500 Mg [id number] Mg PO BID #60 TAB Ref 0 06/27/16 Fluconazole 100 Mg Eqb936 Mg PO DAILY Ref 0 06/27/16 Fenofibrate 145 Mg Sjg620 Mg PO DAILY #30 TAB Ref 0 06/27/16 Dexamethasone 0.5 Mg Tab0.5 Mg PO BID Ref 0 06/27/16 Atorvastatin 20 Mg Tab20 Mg PO HS #30 TAB Ref 0 06/27/16 Ascorbic Acid 1,000 Mg Tab1,000 Mg PO DAILY #30 TAB Ref 0 06/27/16 Current Medications Medications (Trade) Dose Ordered Sig/Dat Route Start Time Stop Time Status Last Admin (NS Flush) 2 ml UNSCH PRN FLUSH 06/26/16 20:30 (NS Flush) 2 ml BID FLUSH 06/26/16 21:00 06/27/16 09:00 (Narcan Inj) 0.4 mg UNSCH PRN IV 06/26/16 20:30 Physical Exam Vital Signs Vital Signs Date Time Temp Pulse Resp B/P Pulse Ox O2 Delivery O2 Flow Rate FiO2 06/27/16 08:10 98.6 76 18 126/70 97 06/26/16 23:24 Room Air I/O 06/26/16 06/26/16 06/27/16 08:00 16:00 00:00 Intake Total 2000 ml Balance 2000 ml Assessment & Plan Problem List: (1) Delirium due to another medical condition Assessment & Plan: Patient is unresponsive, obtunded, seems to be lethargic, psychomotor retarded most probably hypoactivity delirious due to underlying brain cancer. Patient doesn't have any psychiatric history. Patient does not meet criteria for psychiatric admission,. He does not need any immediate psychiatric intervention. Michel act will be lifted. ICD Code: F05 Assessment & Plan Estimated LOS: Steven Hernandez MD Jun 27, 2016 15:57
[2016-06-27 16:12] VITALS: BP 119/63; PULSE 74; RESP 20; TEMP 97.9; O2SAT 95
[2016-06-27] MEDS ORDERED: cefTRIAXone INJ 1,000 MG in SODIUM CHLORIDE 0.9% INJ 100 ML IV SCH (20:00)
== END 2016-06-27 20:11 | disposition home or self-care (01) ==
LOC: NEPE 14:58 → NEDA 20:20 → NEPFCDU 06-27 01:56
PROVIDERS: ADMIT Internal Medicine; ATTEND Internal Medicine
DX: R41.82 Altered mental status, unspecified (principal); D72.829 Elevated white blood cell count, unspecified; C71.9 Malignant neoplasm of brain, unspecified; R64 Cachexia; F05 Delirium due to known physiological condition; E87.1 Hypo-osmolality and hyponatremia; G92 Toxic encephalopathy; Z86.73 Personal history of transient ischemic attack (TIA), and cerebral infarction without residual deficits
CPT/HCPCS: 70450; 71010; 80048; 80053; 80307; 80320; 81001; 82140; 83605; 85007; 85025; 85027; 85610; 87040; 96360; 99285; G0378; J0696; J7030; P9612